=== PATIENT | female | born 1940 | race Asian ===

== ENCOUNTER → 2016-11-25 | Day surgery (SDC) | payer MEDICARE, MEDICAID ==
[~2016-11-25] MED LIST: Acetaminophen TAB* 325 MG PO PRN; Atropine 1MG/ML INJ* 1 ML VIAL ONE; BSS OPTH.SOL* BTL ONE; Buffered Lidocaine 1% SYR 3ML* 3 ML/SYR SYRINGE INTRADERM ONE; Buffered Lidocaine 1% SYR 3ML* 3 ML/SYR SYRINGE ONE; Dexamethasone IV* 4 MG/ML 1 ML (4 MG) IV SLOW PU ONE; Dexamethasone IV* 4 MG/ML 1 ML (4 MG) ONE; EPHEDrine (Pressors)* 50 MG/ML VIAL ONE; Ketorolac INJ* 30 MG/ML 1 ML VIAL IV PRN; Lidocaine 2% PF * 5 ML VIAL ONE; Neomycin/Polymy/Dex OPHTH.OIN* 3.5 GM ONE; Ondansetron INJ* 2 MG/ML VIAL ONE; PROCHLORPERAZINE INJ 5 MG/ML 2 ML VIAL IV PRN; Phenylephrine 2.5% OPTH.SOL* 2 ML BTL ONE; Propofol* 10 MG/ML 20 ML BTL IV PUSH ONE; Rocuronium* 10 MG/ML VIAL ONE; Tetracaine 0.5% OPTH.SOL 15ML* BTL ONE; fentaNYL* 50 MCG/ML 2 ML VIAL (100 MCG VIAL) IV PRN; fentaNYL* 50 MCG/ML 2 ML VIAL (100 MCG VIAL) ONE
[2016-11-25 10:15] VITALS: BP 147/70
--- NOTE | 2016-11-25 12:18 | OP ---
DATE OF OPERATION: 11/25/16 - [facility] DATE OF : 44 SURGEON: Jasbir Santacruz MD SAW GRINDER: None. ANESTHESIOLOGIST: Fabiano Colvin MD ANESTHESIA: General. 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 OPERATIVE PROCEDURE: Maximal recession of medial rectus muscle, OU. COMPLICATIONS: None. ESTIMATED BLOOD LOSS: Minimal. DESCRIPTION OF PROCEDURE: The patient is brought to the operating room, received general anesthesia without any complications. A drop of Tetracaine and a drop of phenylephrine were placed in each eye. The patient was prepped and draped in the usual sterile fashion for ophthalmic surgery and attention was directed to the left eye, where a speculum was placed. Forced ductions were performed, which showed significant restriction to abduction. Due to the small palpebral fissures and friable conjunctivae, it was decided to approach the muscle with a limbal peritomy. Thus, a 6-0 silk traction suture was placed to the 12 o'clock and 6 o'clock position at the limbus and the eye was brought to a slightly abducted position. A marking pen was used to donta the anticipated incision points. A Lexx scissors were made to create a medial limbal peritomy. A relaxation cut was made inferiorly in a radial fashion. The medial rectus muscle was isolated on a small muscle hook. This was replaced with a Bill muscle hook. The check ligament was violated so that Bill muscle hook could be passed fully under the muscle. Gentle blunt dissection was performed to clean the muscle. Hemostasis in the area of the muscle insertion was achieved with a cautery. A double-arm 6-0 Vicryl suture was woven to the muscle and locked to the either end. The muscle was disinserted into the globe. In the hang back fashion, the suture needles were placed to the original insertion site and the muscle was pulled up to its original position. A caliper was used to donta 6.5 mm along the sutures as they extended anteriorly into free space. A clamp was placed across the sutures at this point and the sutures were tied and double suture were trimmed. The clamp was removed. The muscle was allowed to hang back 6.5 mm from its original insertion. The conjunctiva was then closed with interrupted 6-0 gut sutures. The traction sutures were removed. Forced ductions were performed and appeared normal. The speculum was then placed in the contralateral, right eye. Here forced ductions also confirmed significant restriction to abduction. The same procedure was performed in the right eye that had been performed in the left eye. At the end of the case, forced ductions seemed markedly improved. Inspection of the eyes revealed a very small angle esotropia under anesthesia. The speculum was removed. The eyes were irrigated. Tetracaine was placed in each eye and Maxitrol ointment was placed in each eye. The patient was awakened uneventfully and sent to the recovery room with postoperative instructions and followup appointment. [id number]/[facility] #: [id number] [place]
== END | disposition home or self-care (01) ==
LOC: OREAST 06:45
PROVIDERS: ATTEND Ophthalmology
DX: H50.00 Unspecified esotropia (principal)
CPT/HCPCS: A9270-GY; J0461; J1100; J2405; J2704; J3010

== ENCOUNTER 2017-05-09 17:49 | Emergency (ER) | payer MEDICARE, MEDICAID ==
[2017-05-09 17:55] VITALS: BP 169/81
[2017-05-09] MEDS ORDERED: DOXYcycline CAP(*) 100 MG PO ONE (18:12)
--- NOTE | 2017-05-09 18:29 | UC ---
Skin Complaint HPI - HPI Summary HPI Summary: FOUND A TICK ATTACHED BEHIND LEFT KNEE TODAY. [place]ARDEN DA[place]. DOES NOT KNOW HOW LONG IT HAS BEEN ATTACHED. IT IS ENGORGED. - History of Current Complaint Chief Complaint: UCSkin Time Seen by Provider: 05/09/17 17:56 Stated Complaint: SORE ON SIDE Hx Obtained From: Patient, Family/Concierge - DAUGHTER Onset/Duration: Sudden Onset, Still Present Timing: Constant Onset Severity: Moderate Current Severity: Moderate Pain Intensity: 0 Pain Scale Used: 0-10 Numeric Location: Discrete - BEHIND LEFT KNEE Character: Redness Aggravating: Nothing Alleviating: Nothing Associated Signs & Symptoms: Positive: Negative - Allergy/Home Medications Allergies/Adverse Reactions: Allergies Allergy/AdvReac Type Severity Reaction Status Date / Time No Known Allergies Allergy Verified 11/25/16 07:05 Home Medications: Home Medications NK [No Home Medications Reported] 05/09/17 [History Confirmed 05/09/17] Review of Systems Constitutional: Negative Skin: Other - TICK ATTACHED Respiratory: Negative Cardiovascular: Negative Gastrointestinal: Negative All Other Systems Reviewed And Are Negative: Yes PMH/Surg Hx/FS Hx/Imm Hx Previously Healthy: Yes - Surgical History Surgical History: Yes Surgery Procedure, Year, and Place: Thyroid nodule MANY YRS AGO. left cataract 2013 [facility] [place]. right cataract 2016 - Family History Known Family History: Positive: Hypertension - Social History Alcohol Use: None Substance Use Type: None Smoking Status (MU): Never Smoked Tobacco Have You Smoked in the Last Year: No Physical Exam Triage Information Reviewed: Yes Appearance: Well-Appearing, No Pain Distress, Well-Nourished Vital Signs: Initial Vital Signs Temp 98.1 F 05/09/17 17:51 Pulse 58 05/09/17 17:51 Resp 18 05/09/17 17:51 BP 169/81 05/09/17 17:51 Pulse Ox 100 05/09/17 17:51 Vital Signs Reviewed: Yes Eyes: Positive: Conjunctiva Clear ENT: Positive: Hearing grossly normal Neck: Positive: Supple Respiratory: Positive: No respiratory distress, No accessory muscle use Cardiovascular: Positive: Pulses Normal Abdomen Description: Positive: Soft Musculoskeletal: Positive: No Edema Neurological: Positive: Alert Psychological: Positive: Age Appropriate Behavior Skin: Positive: Other - ENGORGED TICK ATTACHED POSTERIOR LEFT KNEE Course/Dx - Course Course Of Treatment: TICK REMOVED IN ENTIRETY USING TICK TWISTER. 200MG PROPHYLACTIC DOSE OF DOXY GIVEN - Diagnoses Provider Diagnoses: TICK BITE LEFT POSTERIOR KNEE Discharge - Discharge Plan Condition: Stable Disposition: HOME Patient Education Materials: Tick Bite (ED) Referrals: Janeth Olivares MD [Primary Care Provider] - If Needed Additional Instructions: YOU HAVE RECEIVED THE 200MG PROPHYLACTIC DOSE OF DOXYCYCLINE TODAY. The Infectious Disease Society of [place] (IDSA) does not generally recommend antimicrobial prophylaxis for prevention of Lyme disease after a recognized tick bite. However, in areas that are highly endemic for Lyme disease, a single dose of doxycycline may be offered to adult patients (200 mg) who are not and to children older than 8 years of age (4 mg/kg up to a maximum dose of 200 mg) when all of the following circumstances exist: CRITERIA FOR RECEIVING PROPHYLACTIC TREATMENT FOR LYME DISEASE 1) TICK ATTACHED FOR AT LEAST 36 HRS 2) TICK IS AN ADULT OR [place] DEER TICK 3) YOU LIVE IN AN AREA WHERE LYME DISEASE IS PREVALENT (i.e., [place], [place], [place], [place], [place] , [place], [place], [place], [place], [place], [place], [place], [place], [place]) 4) YOU HAVE NO CONTRAINDICATION TO THE MEDICATION (DOXYCYCLINE) 5) PROPHYLAXIS IS BEGUN WITHIN 72 HRS OF TICK REMOVAL YOUR CHANCES OF DEVELOPING LYME DISEASE ARE EXTREMELY SMALL. BE VIGILANT OF YOUR SYMPTOMS AND DON'T HESITATE TO GET SEEN AGAIN IF YOU DEVELOP UNEXPLAINED FEVER, HEADACHE, JOINT PAIN, BODY ACHES, RASH OR ANY OTHER CONCERNING SYMPTOMS. Antibiotic treatment following a tick bite is not recommended as a means to prevent anaplasmosis, babesiosis, ehrlichiosis, or [place] spotted fever. There is no evidence this practice is effective, and it may simply delay onset of disease. Instead, persons who experience a tick bite should be alert for symptoms suggestive of tickborne illness and consult a physician if fever, rash, or other symptoms of concern develop.
== END 2017-05-09 18:20 | disposition home or self-care (01) ==
LOC: UCEAST 17:49
DX: S80.262A Insect bite (nonvenomous), left knee, initial encounter (principal); W57.XXXA Bitten or stung by nonvenomous insect and other nonvenomous arthropods, initial encounter
CPT/HCPCS: 99212; A9270-GY; G0463

== ENCOUNTER 2017-05-28 16:28 | Emergency (ER) | payer MEDICARE, MEDICAID ==
[2017-05-28 18:44] VITALS: BP 172/69
[2017-05-28] MEDS ORDERED: DOXYcycline CAP(*) 100 MG PO ONE (18:51)
--- NOTE | 2017-05-28 19:12 | UC ---
General HPI - HPI Summary HPI Summary: This is an otherwise healthy 77 yo female who presented with c/o tick bite. The tick was removed last night. Unsure how long it was attached. This was her 2nd bite in the last month. 1st was ~3 weeks ago. Her daughter would like her tested for Lyme. No rash, fever or other symptoms. The tick was small. - History of Current Complaint Chief Complaint: [facility] Stated Complaint: TICK BITE - Allergy/Home Medications Allergies/Adverse Reactions: Allergies Allergy/AdvReac Type Severity Reaction Status Date / Time No Known Allergies Allergy Verified 05/28/17 16:57 PMH/Surg Hx/FS Hx/Imm Hx Previously Healthy: Yes - Surgical History Surgical History: Yes Surgery Procedure, Year, and Place: Thyroid nodule MANY YRS AGO. left cataract 2012 [facility] [place]. right cataract 2015 - Family History Known Family History: Positive: Hypertension - Social History Alcohol Use: None Substance Use Type: None Smoking Status (MU): Never Smoked Tobacco Have You Smoked in the Last Year: No Review of Systems Constitutional: Negative Skin: Negative Eyes: Negative ENT: Negative Respiratory: Negative Cardiovascular: Negative Gastrointestinal: Negative Genitourinary: Negative Motor: Negative Neurovascular: Negative Musculoskeletal: Negative Neurological: Negative Psychological: Negative All Other Systems Reviewed And Are Negative: Yes Physical Exam Triage Information Reviewed: Yes Appearance: Well-Appearing Vital Signs: Initial Vital Signs Temp 99.0 F 05/28/17 16:54 Pulse 49 05/28/17 16:54 Resp 18 05/28/17 16:54 BP 103/57 05/28/17 16:54 Pulse Ox 99 05/28/17 16:54 Vital Signs Reviewed: Yes Respiratory: Positive: Chest non-tender, Lungs clear, Normal breath sounds. Negative: Crackles, Rhonchi, Wheezing Cardiovascular: Positive: RRR, No Murmur Abdomen Description: Positive: Nontender, Soft Musculoskeletal: Positive: Strength Intact Skin: Positive: Other - punctate area of redness on leg from tick removal, no surrounding redness Course/Dx - Course Course Of Treatment: This is an otherwise healthy 77 yo female who presents after a tick was removed last night. Unsure how long it was attached. Recommend prophylaxis. Her daughter would like her tested for Lyme despite negative symptoms. - Differential Dx - Multi-Symptom Provider Diagnoses: 1. Tick bite Discharge - Discharge Plan Condition: Stable Disposition: HOME Patient Education Materials: Lyme Disease (ED), Tick Bite (ED) Referrals: Janeth Olivares MD [Primary Care Provider] - If Needed Additional Instructions: Activity: No restrictions Instructions: 1. Monitor for signs of Lyme disease, no further antibiotics are necessary at this time 2. We will receive Lyme test results back next week, if positive, a longer course of antibiotics are necessary
[2017-06-01 09:42] LABS: Lyme Disease IgG Ab WB Negative (Negative)
== END 2017-05-28 19:10 | disposition home or self-care (01) ==
LOC: UCEAST 16:28
DX: S80.869A Insect bite (nonvenomous), unspecified lower leg, initial encounter (principal); W57.XXXA Bitten or stung by nonvenomous insect and other nonvenomous arthropods, initial encounter; Y93.9 Activity, unspecified; Y92.9 Unspecified place or not applicable; Y99.9 Unspecified external cause status
CPT/HCPCS: 86617; 99212; A9270-GY; G0463

== ENCOUNTER 2020-01-10 08:57 | Emergency (ER) | payer OTHER, MEDICAID ==
[2020-01-10 09:45] LABS: ABS Eosinophils 0.1 10^3/ul (0-0.6); ABS Lymphocytes 0.9 10^3/ul (1.0-4.8); ABS Monocytes 0.4 10^3/ul (0-0.8); ABS Neutrophils 5.5 10^3/ul (1.5-7.7); Hematocrit 45 % (35-47); Hemoglobin 15.4 g/dL (12.0-16.0); Lymphocyte % 13.2 %; Mean Corpuscular HGB Conc 34 g/dL (31-36); Mean Corpuscular Hemoglobin 32 pg (27-31); Mean Corpuscular Volume 92 fL (80-97); Mean Platelet Volume 7.9 fL (7.4-10.4); Platelet Count 244 10^3/uL (150-450); Red Blood Count 4.89 10^6 /uL (3.70-4.87); Red Cell Distribution Width 13 % (10-15); White Blood Count 6.8 10^3/uL (3.5-10.8)
--- NOTE | 2020-01-10 09:51 | ED ---
Syncope/Near Syncope - HPI Summary HPI Summary: Patient is a 80 y/o F presenting to the ED via EMS for a chief complaint of syncope that occurred around 06:00 on 01/10/20. Patient is present with her and neighbor. Patient speaks Filipino and an supervisor broadloom [id number] and patient's neighbor is interpreting for the patient. Patient woke up at 06:00 and felt cramping in her legs after which she went to bathroom. In the bathroom , she felt nausea and had an episode of vomiting which is described as bile. Patient felt better after vomiting. After standing up in the bathroom, patient felt lightheadedness and sat on a stool. She stood up again and caught her foot on the stool, falling and subsequently having a syncopal episode. Prior to the syncopal episode, patient notes having dizziness and blurred vision. Her later woke up and found the patient, who at that time, had awakened. Currently, patient complains of shoulder pain and generalized weakness. The dizziness, lightheadedness, and blurred vision have since resolved. She notes chronic left shoulder pain that is unchanged. She uses cupping to relieve the shoulder pain. Patient denies shortness of breath, headache, or abdominal pain. The pain is rated as a 1/10 in severity. No aggravating factors are reported. Any significant PMHx is denied. [place] in a house without stairs. - History Of Current Complaint Chief Complaint: EDSyncope Time Seen by Provider: 01/10/20 09:02 Hx Obtained From: Patient, Family/Energy Project Engineer - Neighbor, Supervisor Assembly [employer] - Supervisor Assembly Stock [id number] Beth. Onset/Duration: Sudden Onset, Resolved Timing: Constant Context: Unwitnessed, Loss Of Consciousness Activity At Onset: At Rest Aggravating Factor(s): Nothing Alleviating Factor(s): Spontaneous Resolution Associated Signs And Symptoms: Chest Pain, Dizzy - Resolved, Lightheadedness - Resolved, Weakness - Generalized - Allergies/Home Medications Allergies/Adverse Reactions: Allergies Allergy/AdvReac Type Severity Reaction Status Date / Time No Known Allergies Allergy Verified 01/10/20 09:04 Home Medications: Home Medications NK [No Home Medications Reported] 05/09/17 [History Confirmed 01/10/20] PMH/Surg Hx/FS Hx/Imm Hx Previously Healthy: Yes Endocrine/Hematology History: Reports: Hx Thyroid Disease Respiratory History: Reports: Other Respiratory Problems/Disorders - RECENT URI Musculoskeletal History: Reports: Hx Bursitis - in hip - resolved now Sensory History: Reports: Hx Cataracts - RIGHT, Hx Contacts or Glasses - READING Denies: Hx Legally Blind, Hx Deafness, Hx Hearing Aid Opthamlomology History: Reports: Hx Cataracts - RIGHT, Hx Contacts or Glasses - READING Denies: Hx Legally Blind EENT History: Denies: Hx Deafness - Surgical History Surgical History: Yes Surgery Procedure, Year, and Place: Thyroid nodule MANY YRS AGO. left cataract 2013 [facility] [place]. right cataract 2016 Hx Anesthesia Reactions: No Infectious Disease History: No Infectious Disease History: Denies: Traveled Outside the [place] in Last 30 Days - Family History Known Family History: Positive: Hypertension - Social History Occupation: Retired Lives: With Family Alcohol Use: None Hx Substance Use: No Substance Use Type: Reports: None Hx Tobacco Use: No Smoking Status (MU): Never Smoked Tobacco Have You Smoked in the Last Year: No Review of Systems Positive: Blurred Vision - Resolved Negative: Chest Pain Negative: Shortness Of Breath Positive: Vomiting - Bile, Nausea. Negative: Abdominal Pain Positive: Arthralgia - Chronic left shoulder Neurological/Mental Status: Other - Positive dizziness and lightheadedness, resolved Positive: Weakness - Generalized, Syncope - Resolved. Negative: Headache All Other Systems Reviewed And Are Negative: Yes Physical Exam - Summary Physical Exam Summary: Constitutional: Well-developed, Well-nourished, Alert. (-) Distressed Skin: Warm, Dry HENT: Normocephalic; Atraumatic Eyes: Conjunctiva normal. Strabismus Neck: Musculoskeletal ROM normal neck. (-) JVD, (-) Stridor, (-) Nuchal rigidity Cardio: Rhythm regular, rate normal, Heart sounds normal; Intact distal pulses; Radial pulses are 2+ and symmetric. (-) Murmur Pulmonary/Chest wall: Effort normal. (-) Respiratory distress, (-) Wheezes, (-) Rales Abd: Soft, (-) tenderness, (-) Distension, (-) Guarding, (-) Rebound Musculoskeletal: (-) Edema. Tenderness to the left trapezius. Lymph: (-) Cervical adenopathy Neuro: Alert, Oriented x3 Psych: Mood and affect Normal Triage Information Reviewed: Yes Vital Signs On Initial Exam: Initial Vitals Temp Pulse Resp BP Pulse Ox 98.4 F 57 24 180/64 100 01/10/20 08:58 01/10/20 08:58 01/10/20 08:58 01/10/20 08:58 01/10/20 08:58 Vital Signs Reviewed: Yes - [place] Coma Scale Best Eye Response: 4 - Spontaneous Best Motor Response: 6 - Obeys Commands Best Verbal Response: 5 - Oriented Coma Scale Total: 15 Procedures - Sedation Patient Received Moderate/Deep Sedation with Procedure: No Diagnostics - Vital Signs Vital Signs Temp Pulse Resp BP Pulse Ox 01/10/20 09:35 56 20 134/74 99 01/10/20 09:14 57 01/10/20 09:04 56 16 100 01/10/20 09:00 55 19 180/64 100 01/10/20 08:58 98.4 F 57 24 180/64 100 - Laboratory Lab Results: Lab Results 01/10/20 Range/Units 09:35 WBC 6.8 (3.5-10.8) 10^3/uL RBC 4.89 H (3.70-4.87) 10^6 /uL Hgb 15.4 (12.0-16.0) g/dL Hct 45 (35-47) % MCV 92 (80-97) fL MCH 32 H (27-31) pg MCHC 34 (31-36) g/dL RDW 13 (10-15) % Plt Count 244 (150-450) 10^3/uL MPV 7.9 (7.4-10.4) fL Neut % (Auto) 79.7 % Lymph % (Auto) 13.2 % Mclean % (Auto) 5.6 % Eos % (Auto) 1.0 % Baso % (Auto) 0.5 % Absolute Neuts (auto) 5.5 (1.5-7.7) 10^3/ul Absolute Lymphs (auto) 0.9 L (1.0-4.8) 10^3/ul Absolute Monos (auto) 0.4 (0-0.8) 10^3/ul Absolute Eos (auto) 0.1 (0-0.6) 10^3/ul Absolute Basos (auto) 0.0 (0-0.2) 10^3/ul Absolute Nucleated RBC 0.0 10^3/ul Nucleated RBC % 0.0 Result Diagrams: 01/10/20 09:35 01/10/20 09:35 Lab Statement: Any lab studies that have been ordered have been reviewed, and results considered in the medical decision making process. - Radiology Chest X-ray Radiology Interpretation Completed By: Radiologist Summary of Radiographic Findings: Chest X-ray IMPRESSION: No active cardiopulmonary disease is noted. Reviewed by Dr. Reno. Ankle X-ray Radiology Interpretation Completed By: Radiologist Summary of Radiographic Findings: Ankle X-ray IMPRESSION: 1. OSTEOPENIA. 2. OSTEOARTHRITIS. 3. NO ACUTE OSSEOUS INJURY. THE DEGREE OF OSTEOPENIA MAY MAKE A NONDISPLACED FRACTURE RADIOGRAPHICALLY OCCULT. IF SYMPTOMS PERSIST, RECOMMEND REPEAT IMAGING. Reviewed by Dr. Reno. Foot X-ray Radiology Interpretation Completed By: Radiologist Summary of Radiographic Findings: Foot X-ray IMPRESSION: 1. OSTEOPENIA. 2. OSTEOARTHRITIS. 3. NO ACUTE OSSEOUS INJURY. THE DEGREE OF OSTEOPENIA MAY MAKE A NONDISPLACED FRACTURE RADIOGRAPHICALLY OCCULT. IF SYMPTOMS PERSIST, RECOMMEND REPEAT IMAGING. Reviewed by Dr. Reno. - CT Brain CT CT Interpretation Completed By: Radiologist Summary of CT Findings: Brain CT IMPRESSION: #. No CT evidence for traumatic brain injury or acute intracranial process. #. Mild retained secretions at the sphenoid and posterior LEFT ethmoid sinuses. Negative for paranasal sinus fluid levels within the [id number]. Correlate with clinical assessment for potential sinusitis. Reviewed by Dr. Reno. - EKG 09:07 Cardiac Rate: Bradycardia - 57 BPM EKG Rhythm: Sinus Bradycardia ST Segment: Normal Ectopy: None Summary of EKG Findings: An EKG at 09:07 reveals sinus bradycardia with 57 BPM, nml axis, nml intervals. No STEMI. No acute changes. ED physician has reviewed and interpreted this EKG. Re-Evaluation - Re-Evaluation First Eval Re-Evaluation Time: 11:34 Change: Improved Comment: At 11:34, patient is feeling much better. Second Eval Re-Evaluation Time: 12:44 Change: Improved Comment: At 12:44, I reviewed imaging and lab results with the patient. She is feeling better and ready for discharge. Third Eval Re-Evaluation Time: 13:06 Change: Unchanged Comment: At 13:06, patients nurse reports the patient is leaning to the right and is walking with an unsteady gait on orthostatics. Patient reports L ankle pain with walking. I will order an x-ray for the ankle. Fourth Eval Re-Evaluation Time: 14:23 Change: Improved Comment: At 14:23, patient is able to ambulate with a steady gait. Course/Dx Course Of Treatment: 80 y/o F p/w syncope: Syncope. DDx: most likely orthostatic. Orthostatics positive here w dec in BP when standing. Given 1L IVF , tolerating PO. Abd soft do not suspect intraabdominal process. Seizure: no witnessed seizure activity, incontinence or h/o seizures to suggest seizure today. Hypoxia and hypoglycemia less likely in this patient with normal sats and BG. Cardiac issue: electrical (dysarrhythmias, brugada, WPW, long QT). Less likely given no evidence of drop attack, no palpitations, no EKG findings to predispose to arrhythmias. No CP, no STEMI on EKG; troponin negative x2. Patient initially reported chest pain which was clarified to shoulder pain with leaf conditioner. Mechanical: outflow obstruction like HOCM or aortic stenosis, tamponade-less likely as no murmur, non-exertional, no hypertrophy on EKG. Vessels: PE, dissection, AAA. Clinical picture inconsistent, no abd pain, no pulsatile mass, symmetric pulses, no risk factors of PE, d dimer <200. Neuro: No ROJO, no personal or family h/o cerebral aneurysm, nml neuro exam, CT brain negative - Diagnoses Provider Diagnoses: Syncope, Vomiting Discharge ED - Sign-Out/Discharge Documenting (check all that apply): Patient Departure - Discharge - Discharge Plan Condition: Stable Disposition: HOME Patient Education Materials: Syncope (ED) Referrals: Janeth Olivares MD [Primary Care Provider] - Additional Instructions: You were seen in the emergency department for passing out. Your brain CT, and chest x-ray did not show any acute abnormalities. Your blood work did not show any abnormalities of your heart. Please follow up with your primary care doctor in next 2-3 days and return to emergency department for chest pain, passing out, shortness of breath, worsening or concerning symptoms. It was a pleasure taking care of you today. - Billing Disposition and Condition Condition: STABLE Disposition: Home - Attestation Statements Document Initiated by Scribe: Yes Documenting Scribe: Do Singer Provider For Whom Gaelibe is Documenting (Include Credential): Get Reno MD Scribe Attestation: IDo, scribed for Get Reno MD on 01/10/20 at 1526. Scribe Documentation Reviewed: Yes Provider Attestation: The documentation as recorded by the Do francois accurately reflects the service I personally performed and the decisions made by , Get Reno MD Status of Scribe Document: Viewed
[2020-01-10 10:03] LABS: Albumin/Globulin Ratio 1.3 (1-3); BUN/Creatinine Ratio 19.5 (8-20); Calcium 8.9 mg/dL (8.6-10.3); EGFR African American 81.6 (>60); EGFR Non-African American 67.4 (>60); Globulin 3.1 g/dL (2-4); Potassium 3.7 mmol/L (3.5-5.0); Total Bilirubin 0.7 mg/dL (0.2-1.0); Total Protein 7.1 g/dL (6.4-8.9)
[2020-01-10 10:05] LABS: Troponin I 0.02 ng/mL (<0.03)
[2020-01-10] MEDS ORDERED: NS 0.9% 1000 ML** 1,000 ML IV ONE (10:47)
[2020-01-10] MEDS ORDERED: Acetaminophen TAB* 325 MG PO ONE (13:31)
[2020-01-10 14:58] VITALS: BP 149/71
== END 2020-01-10 14:59 | disposition home or self-care (01) ==
LOC: ED 08:57
DX: R55 Syncope and collapse (principal); R11.10 Vomiting, unspecified; R00.1 Bradycardia, unspecified; M85.872 Other specified disorders of bone density and structure, left ankle and foot; M19.072 Primary osteoarthritis, left ankle and foot
CPT/HCPCS: 36415; 70450; 71046; 80053; 84484; 85025; 85379; 93005; 96360; 99285; A9270-GY